=== PATIENT | female | born 1965 | race Caucasian/White ===

== ENCOUNTER 2023-02-05 03:52 | Emergency (ER) | payer SELFPAY ==
[2023-02-05 03:55] VITALS: BP 116/112; PULSE 85; RESP 15; TEMP 36.6; O2SAT 100
--- NOTE | 2023-02-05 05:22 | PC.NURSE ---
Patient and spouse left ED.
== END 2023-02-05 05:22 | disposition left against medical advice (07) ==
LOC: ANHED 05:51
DX: R51.9 Headache, unspecified (principal)
CPT/HCPCS: 99199